=== PATIENT | female | born 1985 | race Two or more races ===

== ENCOUNTER 2017-07-30 04:36 | Emergency (ER) | payer OTHER ==
[~2017-07-30] VITALS: Ht 170.2 cm; Wt 90.6 kg
[2017-07-30 06:14] LABS: HEMATOCRIT 40.1 % (34.6-47.8); HEMOGLOBIN 13.5 g/dL (11.7-16.4)
[2017-07-30 06:23] LABS: BLOOD UREA NITROGEN 11 mg/dL (7-18)
[2017-07-30] MEDS ORDERED: KETOROLAC 30 MG/1 ML IVPush ONE (07:00)
[2017-07-30] MEDS ORDERED: KETOROLAC 30 MG/1 ML ONE (07:01)
[2017-07-30 07:23] VITALS: BP 136/88
== END 2017-07-30 07:25 | disposition home or self-care (01) ==
LOC: ED 06:22
DX: R10.32 Left lower quadrant pain (principal)
CPT/HCPCS: 36415; 76830; 80048; 81003; 82040; 84703; 85025; 96374; 99285; J1885

== ENCOUNTER 2017-09-17 23:33 | Emergency (ER) | payer OTHER ==
[~2017-09-17] VITALS: Ht 170.2 cm; Wt 89.4 kg
[2017-09-18] MEDS ORDERED: SODIUM CHLORIDE 0.9% 1,000ML IVBOLUS ONE
[2017-09-18] MEDS ORDERED: SODIUM CHLORIDE FLUSH 10ML SYR IVF ONE
[2017-09-18] MEDS ORDERED: KETOROLAC 30 MG/1 ML IVPush ONE
[2017-09-18] MEDS ORDERED: KETOROLAC 30 MG/1 ML ONE (00:07)
[2017-09-18 00:21] LABS: HEMATOCRIT 41.7 % (34.6-47.8); HEMOGLOBIN 14.2 g/dL (11.7-16.4); WHITE BLOOD COUNT 12.2 x10^3/uL (3.4-10)
[2017-09-18 00:34] LABS: ASPARTATE AMINO TRANSFERASE 10 U/L (15-37); BLOOD UREA NITROGEN 11 mg/dL (7-18)
[2017-09-18] MEDS ORDERED: morphine SULFATE 10 MG/ML, 1ML ONE (01:56)
[2017-09-18] MEDS ORDERED: ONDANSETRON 2MG/ML, 2ML ONE (01:56)
[2017-09-18] MEDS ORDERED: ONDANSETRON 2MG/ML, 2ML IVPush ONE (02:00)
[2017-09-18] MEDS ORDERED: morphine SULFATE 10 MG/ML, 1ML IVPush ONE (02:00)
[2017-09-18 02:52] VITALS: BP 118/57
== END 2017-09-18 02:54 | disposition home or self-care (01) ==
LOC: ED 23:59
DX: R10.32 Left lower quadrant pain (principal)
CPT/HCPCS: 36415; 76830; 80053; 81003; 84702; 85025; 96361; 96374; 96375; 99285; J1885; J2270; J2405; J7030

== ENCOUNTER 2018-09-28 22:42 | Emergency (ER) | payer OTHER ==
[~2018-09-28] VITALS: Ht 170.2 cm; Wt 90.0 kg
[2018-09-28 23:31] VITALS: BP 128/68
[2018-09-28 23:42] LABS: CULTURE INDICATED? YES; MICROSCOPIC INDICATED
[2018-09-28] MEDS ORDERED: CEFTRIAXONE 250 MG ONE (23:55)
[2018-09-29] MEDS ORDERED: CEFTRIAXONE 250 MG IM ONE
== END 2018-09-29 00:02 | disposition home or self-care (01) ==
LOC: ED 23:29
DX: N30.01 Acute cystitis with hematuria (principal)
CPT/HCPCS: 81001; 87077; 87086; 96372; 99284; J0696; 87186

== ENCOUNTER 2020-02-15 10:44 | Emergency (ER) | payer OTHER ==
[~2020-02-15] VITALS: Ht 170.2 cm; Wt 87.1 kg
--- NOTE | 2020-02-15 11:05 | NUR ---
PT TO ROOM VIA WHEELCHAIR FROM TRIAGE WITH C-COLLAR IN PLACED. PT TRANSFERED TO [facility], PT UNABLE TO TOLLERATE HAVING GURNEY FLAT, HOB AT 30DEGREES. VSS. CALL LIGHT W/I REACH, PT INSTRUCTED TO NOT REPOSITION SELF AND TO STAY ON GURNEY. PT VERBALIZES UNDERSTANDING. AWAITING ER PROVIDER VICENTE.
--- NOTE | 2020-02-15 11:18 | NUR ---
ER PA AT BEDSIDE, PT ASSESSMENT POC DISCUSSED. ORDERS REC'D.
[2020-02-15] MEDS ORDERED: METHOCARBAMOL 500 MG TABLET ONE (11:29)
[2020-02-15] MEDS ORDERED: METHOCARBAMOL 750 MG TABLET PO ONE (11:30)
[2020-02-15] MEDS ORDERED: METHOCARBAMOL 750 MG TABLET ONE (11:31)
[2020-02-15] MEDS ORDERED: KETOROLAC 30 MG/1 ML IM ONE (13:00)
[2020-02-15 13:20] VITALS: BP 137/91
--- NOTE | 2020-02-15 13:48 | NUR ---
Patient/Caregiver given discharge instructions and they have confirmed that they understand the instructions. Patient ambulatory with steady gait.
== END 2020-02-15 13:49 | disposition home or self-care (01) ==
LOC: ED 13:19
DX: S16.1XXA Strain of muscle, fascia and tendon at neck level, initial encounter (principal); S00.83XA Contusion of other part of head, initial encounter; R68.84 Jaw pain; W01.0XXA Fall on same level from slipping, tripping and stumbling without subsequent striking against object, initial encounter; Y93.89 Activity, other specified; Y92.89 Other specified places as the place of occurrence of the external cause; Y99.8 Other external cause status
CPT/HCPCS: 70486; 72072; 72125; 99285

== ENCOUNTER 2020-07-05 21:48 | Emergency (ER) | payer OTHER ==
[~2020-07-05] VITALS: Ht 170.2 cm; Wt 81.2 kg
[2020-07-05 21:49] VITALS: BP 122/87
[2020-07-05] MEDS ORDERED: DIPH,PERTUSS(ACELL),TET VAC/PF 0.5 ML IM-VACC ONE ×3 (22:00→22:26)
--- NOTE | 2020-07-05 22:37 | NUR ---
Pt suffered laceration while buidling a shed this morining @1000. Pt wound is about 3cmlength with 1 cm width. Pts wound is irrigated with sterile saline. Pt then had steri strip applied and dermabound for reiforcement.
== END 2020-07-05 22:44 | disposition home or self-care (01) ==
LOC: ED 22:00
DX: S61.411A Laceration without foreign body of right hand, initial encounter (principal); W26.9XXA Contact with unspecified sharp object(s), initial encounter; Y93.89 Activity, other specified; Y92.009 Unspecified place in unspecified non-institutional (private) residence as the place of occurrence of the external cause; Y99.8 Other external cause status
CPT/HCPCS: 12041; 90471; 90715; 99284

== ENCOUNTER 2020-11-11 00:53 | Emergency (ER) | payer OTHER ==
[~2020-11-11] VITALS: Ht 170.2 cm; Wt 82.0 kg
--- NOTE | 2020-11-11 01:10 | NUR ---
PT CAME INTO ED TODAY FOR LOWER LEFT ABDOMINAL QUADRANT PAIN. PT REPORTS NO CHANGE IN BOWEL PATTERNS, ONGOING FOR 6 DAYS, STATES "I THOUGHT IT WAS AN OVARIAN CYST BUT ITS GOTTEN WORSE AND ISNT GOING AWAY." PT AMBULATED TO AND FROM RESTROOM WITH A SMOOTH AND STEADY GAIT, UA OBTAINED. PT RESTING BACK ON GURNEY, APPEARS COMFORTABLE, PLACED ON SPO2/BP MONITORING. DENIES N/V/D. PROVIDED WARM BLANKETS FOR COMFORT. TEGAN MUNOZ AT BS FOR EVAL AND POC
--- NOTE | 2020-11-11 01:23 | NUR ---
pt reports being seen at her [facility] yesterday, after US they informed her it was not a cyst. pt ua and labs collected, wctm.
[2020-11-11] MEDS ORDERED: ONDANSETRON 2MG/ML, 2ML ONE (01:26)
[2020-11-11] MEDS ORDERED: MORPHINE SULFATE 4 MG/ML, 1ML ONE (01:26)
[2020-11-11] MEDS ORDERED: MORPHINE SULFATE 4 MG/ML, 1ML IVPush PRN (01:30)
[2020-11-11] MEDS ORDERED: SODIUM CHLORIDE FLUSH 10ML SYR IVF ONE (01:30)
[2020-11-11] MEDS ORDERED: ONDANSETRON 2MG/ML, 2ML IVPush ONE (01:30)
[2020-11-11] MEDS ORDERED: SODIUM CHLORIDE 0.9% 1,000ML IVBOLUS ONE (01:30)
--- NOTE | 2020-11-11 01:37 | NUR ---
pt medicated per mar for pain, ivf running, lights dimmed for comfort, bed in lowest, call light on lap, wctm.
[2020-11-11 01:59] LABS: ALANINE AMINOTRANSFERASE 21 U/L (12-78); ALBUMIN 3.2 g/dL (3.4-5.0); ANION GAP 9 mmol/L (5-15); CALCIUM 8.7 mg/dL (8.5-10.1); CHLORIDE 110 mmol/L (98-107); CREATININE 0.67 mg/dL (0.55-1.02)
[2020-11-11 02:03] LABS: ALKALINE PHOSPHATASE 73 U/L (45-117); BASOPHILS % (AUTO) 0 % (0-1); EOSINOPHILS % (AUTO) 2 % (1-7); LYMPHOCYTES % (AUTO) 13 % (22-44); MEAN CORPUSCULAR HEMOGLOBIN 28.3 pg (27.0-34.8); MEAN CORPUSCULAR HGB CONC 33.8 g/dL (32.4-35.8); MEAN PLATELET VOLUME 7.8 fL (7.4-10.4); MONOCYTES % (AUTO) 7 % (2-9); NEUTROPHILS % (AUTO) 78 % (42-75); PLATELET COUNT 295 x10^3/uL (130-400); RED BLOOD COUNT 4.66 x10^6/uL (3.82-5.3); RED CELL DISTRIBUTION WIDTH 13.9 % (9.6-15.2); TOTAL PROTEIN 7.8 g/dL (6.4-8.2)
[2020-11-11 02:04] LABS: MD NO
[2020-11-11 02:23] LABS: MICROSCOPIC INDICATED
--- NOTE | 2020-11-11 03:18 | NUR ---
TASK RN: PT RESTING ON SHASHI BRAUN, REPORTS PAIN IS DECREASED AND TOLERABLE, WAITING FOR CT. WCTM.
[2020-11-11 03:47] VITALS: BP 132/85
[2020-11-11] MEDS ORDERED: metroNIDAZOLE 500 MG TABLET ONE (03:48)
[2020-11-11] MEDS ORDERED: CIPROFLOXACIN 500 MG TABLET ONE (03:48)
[2020-11-11] MEDS ORDERED: metroNIDAZOLE 500 MG TABLET PO ONE (04:00)
[2020-11-11] MEDS ORDERED: CIPROFLOXACIN 500 MG TABLET PO ONE (04:00)
--- NOTE | 2020-11-11 04:15 | NUR ---
Patient given discharge instructions and they have confirmed that they understand the instructions. Patient ambulatory with steady gait. nad, all questions answered appropriately. denies additional needs, no personal belongings left in room after dc. pt verbalized that she had a ride home
[2020-11-11] MEDS ORDERED: OMNIPAQUE 350 MG/ML, 100ML BOTTLE ONE (11:27)
== END 2020-11-11 04:25 | disposition home or self-care (01) ==
LOC: ED 01:27
DX: K57.32 Diverticulitis of large intestine without perforation or abscess without bleeding (principal); R10.32 Left lower quadrant pain; Z90.49 Acquired absence of other specified parts of digestive tract
CPT/HCPCS: 36415; 74177; 76830; 80053; 81001; 83690; 84703; 85025; 96361; 96374; 96375; 99285; J2270; J2405; J7030; Q9967

== ENCOUNTER → 2021-02-11 | Outpatient (CLI) | payer OTHER | END | disposition home or self-care (01) | LOC: CFH 08:05 | PROVIDERS: ATTEND Nurse Practitioner Family | DX: N64.4 Mastodynia (principal) | CPT/HCPCS: 76642; 77062; 77066; G0279 ==

== ENCOUNTER 2021-04-26 06:45 | Emergency (ER) | payer OTHER ==
[~2021-04-26] VITALS: Ht 170.2 cm; Wt 89.4 kg
--- NOTE | 2021-04-26 07:20 | NUR ---
PT STATES WAS AT WORK AND AROUND 0400 STARTED TO HAVE NUMBNESS AND TINGLING IN FACE. PT STATES NO WEAKNESS OR FACIAL ASYMETRY. NO WEAKNESS OF DEFICIT EXPERIENCED IN ANY EXTREMITES.
[2021-04-26] MEDS ORDERED: SODIUM CHLORIDE FLUSH 10ML SYR IVF ONE (07:30)
[2021-04-26 07:41] LABS: BASOPHILS % (AUTO) 1 % (0-1); EOSINOPHILS % (AUTO) 3 % (1-7); LYMPHOCYTES % (AUTO) 36 % (22-44); MEAN CORPUSCULAR HEMOGLOBIN 29.1 pg (27.0-34.8); MEAN CORPUSCULAR HGB CONC 34.5 g/dL (32.4-35.8); MEAN PLATELET VOLUME 7.2 fL (7.4-10.4); MONOCYTES % (AUTO) 6 % (2-9); NEUTROPHILS % (AUTO) 55 % (42-75); PLATELET COUNT 252 x10^3/uL (130-400); RED BLOOD COUNT 4.64 x10^6/uL (3.82-5.3); RED CELL DISTRIBUTION WIDTH 13.8 % (9.6-15.2)
[2021-04-26 07:42] LABS: HCT (SEDRATE) 39.4 % (34.6-47.8)
[2021-04-26 07:45] LABS: MD NO
[2021-04-26 07:52] LABS: ALBUMIN 3.4 g/dL (3.4-5.0); ANION GAP 5 mmol/L (5-15); CALCIUM 8.4 mg/dL (8.5-10.1); CHLORIDE 108 mmol/L (98-107); CREATININE 0.71 mg/dL (0.55-1.02)
--- NOTE | 2021-04-26 08:47 | NUR ---
PT STATES STILL HAS NUMBNESS AND TINGLING ON THE L SIDE OF FACE AND AROUND EAR.
--- NOTE | 2021-04-26 08:48 | NUR ---
PT RESTING IN [facility], [facility] RAILS UP X2.
[2021-04-26 09:59] VITALS: BP 122/87
--- NOTE | 2021-04-26 10:21 | NUR ---
Patient given discharge instructions and they have confirmed that they understand the instructions. Patient ambulatory with steady gait. No questions at time of discharge.
== END 2021-04-26 10:23 | disposition home or self-care (01) ==
LOC: ED 09:09
DX: R20.2 Paresthesia of skin (principal); R94.31 Abnormal electrocardiogram [ECG] [EKG]
CPT/HCPCS: 36415; 70450; 80048; 82040; 85025; 85651; 93005; 99285

== ENCOUNTER 2021-08-15 21:40 | Inpatient (IN) | payer OTHER ==
[~2021-08-15] VITALS: Ht 167.6 cm; Wt 92.6 kg
--- NOTE | 2021-08-15 21:58 | NUR ---
PT ALERT AND ORIENTED X4, CHANGING INTO HOSPITAL GOWN. IN NO ACUTE DISTRESS.
[2021-08-15] MEDS ORDERED: ONDANSETRON 2MG/ML, 2ML ONE (22:18)
[2021-08-15] MEDS ORDERED: MORPHINE SULFATE 4 MG/ML, 1ML ONE ×2 (22:19→23:41)
[2021-08-15] MEDS ORDERED: MORPHINE SULFATE 4 MG/ML, 1ML IVPush ONE (22:30)
[2021-08-15] MEDS ORDERED: SODIUM CHLORIDE 0.9% 1,000ML IVBOLUS ONE (22:30)
[2021-08-15] MEDS ORDERED: ONDANSETRON 2MG/ML, 2ML IVPush ONE (22:30)
[2021-08-15] MEDS ORDERED: SODIUM CHLORIDE FLUSH 10ML SYR IVF ONE (22:30)
--- NOTE | 2021-08-15 22:31 | NUR ---
PT IN IMAGING AT THIS TIME, WILL MEDICATE UPON RETURN
[2021-08-15 22:33] LABS: BASOPHILS % (AUTO) 0 % (0-1); EOSINOPHILS % (AUTO) 1 % (1-7); LYMPHOCYTES % (AUTO) 14 % (22-44); MEAN CORPUSCULAR HEMOGLOBIN 28.6 pg (27.0-34.8); MEAN CORPUSCULAR HGB CONC 34.2 g/dL (32.4-35.8); MEAN PLATELET VOLUME 7.6 fL (7.4-10.4); MONOCYTES % (AUTO) 5 % (2-9); NEUTROPHILS % (AUTO) 80 % (42-75); PLATELET COUNT 301 x10^3/uL (130-400); RED BLOOD COUNT 5.12 x10^6/uL (3.82-5.3); RED CELL DISTRIBUTION WIDTH 13.9 % (9.6-15.2)
[2021-08-15 22:41] LABS: ALANINE AMINOTRANSFERASE 37 U/L (12-78); ALBUMIN 3.5 g/dL (3.4-5.0); ANION GAP 4 mmol/L (5-15); CALCIUM 8.5 mg/dL (8.5-10.1); CHLORIDE 104 mmol/L (98-107); CREATININE 0.81 mg/dL (0.55-1.02)
[2021-08-15 22:46] LABS: ALKALINE PHOSPHATASE 65 U/L (45-117); BILIRUBIN,TOTAL 0.9 mg/dL (0.2-1.0); TOTAL PROTEIN 8.3 g/dL (6.4-8.2)
--- NOTE | 2021-08-15 22:47 | NUR ---
PT MEDICATED, IVF RUNNING AT THIS TIME. PT WILL PROVIDE URINE SAMPLE ONCE PAIN IS UNDER CONTROLLED, PT CITES DIFFICULTY MOVING/AMBULATING AT THIS TIME SECONDARY TO PAIN.
[2021-08-15] MEDS ORDERED: KETOROLAC 30 MG/1 ML ONE (23:41)
--- NOTE | 2021-08-15 23:56 | NUR ---
UPDATED PA LONG THAT PT STILL HAVING PAIN, PT MEDICATED WITH ADDITIONAL PAIN MEDICATIONS. CT SCAN PENDING AT THIS TIME. PT HAS CALL CM AND PERSONAL ITEMS WITHIN REACH.
[2021-08-16] MEDS ORDERED: MORPHINE SULFATE 4 MG/ML, 1ML IVPush ONE
[2021-08-16] MEDS ORDERED: KETOROLAC 30 MG/1 ML IVPush ONE
[2021-08-16] MEDS ORDERED: ONDANSETRON 2MG/ML, 2ML IVPush ONE
--- NOTE | 2021-08-16 00:27 | NUR ---
PT TRANSPORTED TO CT AT THIS TIME.
--- NOTE | 2021-08-16 00:32 | NUR ---
PT BACK FROM CT, HAVING INCREASED PAIN. PT TACHY W/ HR 130'S. UPDATED DR. ADAME AND TAMMY ANSARI. DR. ADAME TO EVALUATE PT AND ORDER ADDITIONAL PAIN MEDICATIONS.
[2021-08-16] MEDS ORDERED: HYDROmorphone 2 MG/ML, 1ML ONE (00:35)
--- NOTE | 2021-08-16 00:41 | NUR ---
MEDICATED PT WITH 1MG IV DILAUDID. CT RESULTS PENDING. UNABLE TO PROVIDE URINE SAMPLE AT THIS TIME.
[2021-08-16] MEDS ORDERED: HYDROmorphone 1 MG/ML, 1ML INJ IV ONE (01:00)
[2021-08-16] MEDS ORDERED: METRONIDAZOLE PMX 500MG/100ML 100 ML IV ONE (01:30)
[2021-08-16] MEDS ORDERED: METRONIDAZOLE PMX 500MG/100ML 0 ML ONE (01:32)
[2021-08-16] MEDS ORDERED: ONDANSETRON 2MG/ML, 2ML ONE (01:33)
[2021-08-16] MEDS ORDERED: CIPROFLOXACIN LACTATE 200 MG in DEXTROSE 5% 100 ML IV SCH (01:45)
[2021-08-16 02:10] LABS: MICROSCOPIC AUTO
[2021-08-16] MEDS ORDERED: OXYcodone IR 5MG TABLET PO PRN (02:30)
[2021-08-16] MEDS ORDERED: MELATONIN 5 MG TABLET PO PRN (02:30)
[2021-08-16] MEDS ORDERED: POLYETHYLENE GLYCOL 17 GM PACKET PO PRN (02:30)
[2021-08-16] MEDS ORDERED: HYDROmorphone 2 MG/ML, 1ML IVPush PRN (02:30)
[2021-08-16] MEDS ORDERED: LABETALOL 5MG/ML, 20ML IVPush PRN (02:30)
--- NOTE | 2021-08-16 02:44 | NUR ---
PHARMACY TO RE-TIME MARYJANE AND LATANYA ABX
--- NOTE | 2021-08-16 02:45 | NUR ---
PT PROVIDED W/ CLEAR LIQUIDS AND ICE CHIPS. TOLERATING WELL.
[2021-08-16] MEDS ORDERED: SODIUM CHLORIDE 0.9% 1,000ML IVBOLUS ONE (03:00)
[2021-08-16] MEDS ORDERED: CIPROFLOXACIN LACTATE 200 MG in DEXTROSE 5% 100 ML IV ONE (03:00)
--- NOTE | 2021-08-16 03:17 | NUR ---
PT TRANSITIONED TO INPATIENT BED. TOLERATED WELL. RESTING COMFORTABLY AT THIS TIME. IV ABX RUNNING. CALL CM AND PERSONAL ITEMS WITHIN REACH. DENIES FURTHER NEEDS AT THIS TIME.
[2021-08-16] MEDS ORDERED: ACETAMINOPHEN 325 MG TABLET ONE (04:40)
[2021-08-16] MEDS: ACETAMINOPHEN 325 MG TABLET PO PRN ×3 (04:44→17:52)
[2021-08-16] MEDS ORDERED: OMNIPAQUE 350 MG/ML, 100ML BOTTLE ONE (06:14)
[2021-08-16] MEDS ORDERED: OXYcodone IR 5MG TABLET ONE (06:23)
--- NOTE | 2021-08-16 06:47 | NUR ---
PT R IV SITE INFILTRATED. NEW IV ESTABLISHED IN L HAND. 20G.
--- NOTE | 2021-08-16 07:36 | NUR ---
SBAR RPT REC'D AND ASSUMED PT CARE. PT OOB AND ABLE TO STAND AT SINK TO BRUSH TEETH W/O DIFFICULTY. RATES PAIN 5/10, DENIES NEED FOR ANY ADDITIONAL PAIN MED AT THIS TIME. SP02 MONITORING IN PLACE, 95% RA. CALL LIGHT W/I REACH. ASSESSMENT NOTED.
[2021-08-16] MEDS: LACTATED RINGERS 1,000 ML IV SCH ×2 (07:40→20:32)
[2021-08-16] MEDS ORDERED: METRONIDAZOLE PMX 500MG/100ML 100 ML ONE (09:38)
[2021-08-16] MEDS ORDERED: FAMOTIDINE 20 MG/2 ML ONE (09:38)
[2021-08-16] MEDS: FAMOTIDINE 20 MG/2 ML IVPush SCH ×2 (10:45→20:31)
[2021-08-16] MEDS: METRONIDAZOLE PMX 500MG/100ML 100 ML IV SCH ×2 (10:45→18:41)
[2021-08-16] MEDS: ONDANSETRON 2MG/ML, 2ML IVPush PRN (10:46)
[2021-08-16 12:42] VITALS: BP 123/82
[2021-08-16] MEDS ORDERED: CIPROFLOXACIN/PMX 400MG/200ML 200 ML IV SCH (15:00)
[2021-08-16] MEDS: CEFTRIAXONE 1,000 MG in DEXTROSE 5% 50 ML IVPB SCH (17:09)
[2021-08-16 19:50] VITALS: BP 115/79
[2021-08-17 00:15] VITALS: BP 116/77
[2021-08-17] MEDS: ONDANSETRON 2MG/ML, 2ML IVPush PRN (00:19)
[2021-08-17] MEDS: ACETAMINOPHEN 325 MG TABLET PO PRN (00:20)
[2021-08-17] MEDS: METRONIDAZOLE PMX 500MG/100ML 100 ML IV SCH (02:46)
[2021-08-17] MEDS: CEFTRIAXONE 1,000 MG in DEXTROSE 5% 50 ML IVPB SCH (04:16)
[2021-08-17 06:27] LABS: BASOPHILS % (AUTO) 1 % (0-1); EOSINOPHILS % (AUTO) 2 % (1-7); LYMPHOCYTES % (AUTO) 31 % (22-44); MEAN CORPUSCULAR HEMOGLOBIN 28.9 pg (27.0-34.8); MEAN CORPUSCULAR HGB CONC 34.3 g/dL (32.4-35.8); MEAN PLATELET VOLUME 7.5 fL (7.4-10.4); MONOCYTES % (AUTO) 6 % (2-9); NEUTROPHILS % (AUTO) 60 % (42-75); PLATELET COUNT 233 x10^3/uL (130-400); RED BLOOD COUNT 4.31 x10^6/uL (3.82-5.3); RED CELL DISTRIBUTION WIDTH 13.8 % (9.6-15.2)
[2021-08-17 06:37] LABS: CHLORIDE 109 mmol/L (98-107)
[2021-08-17 06:42] LABS: ALANINE AMINOTRANSFERASE 41 U/L (12-78); ALBUMIN 2.7 g/dL (3.4-5.0); ALKALINE PHOSPHATASE 55 U/L (45-117); ANION GAP 8 mmol/L (5-15); BILIRUBIN,TOTAL 0.4 mg/dL (0.2-1.0); CALCIUM 7.8 mg/dL (8.5-10.1); CREATININE 0.58 mg/dL (0.55-1.02); TOTAL PROTEIN 6.5 g/dL (6.4-8.2)
[2021-08-17 07:22] VITALS: BP 118/79
[2021-08-17] MEDS: FAMOTIDINE 20 MG/2 ML IVPush SCH (09:04)
[2021-08-17] MEDS ORDERED: CEFD300C37 PO (09:59)
[2021-08-17] MEDS ORDERED: METR500T PO (09:59)
[2021-08-17] MEDS ORDERED: LACT1TAB13 PO (09:59)
== END 2021-08-17 12:31 | disposition home or self-care (01) | DRG 872 ==
LOC: ED 22:02 → EDIP 08-16 01:20 → 3N 08-16 09:34
PROVIDERS: ADMIT Internal Medicine; ATTEND Internal Medicine
DX: A41.9 Sepsis, unspecified organism (principal); E87.1 Hypo-osmolality and hyponatremia; K57.32 Diverticulitis of large intestine without perforation or abscess without bleeding; Z90.49 Acquired absence of other specified parts of digestive tract; Z82.49 Family history of ischemic heart disease and other diseases of the circulatory system; Z83.3 Family history of diabetes mellitus
CPT/HCPCS: 36415; 74177; 76830; 80053; 81001; 83605; 84145; 84703; 85025; 87040; 96361; 96374; 96375; 96376; G0378; J0696; J1170; J1885; J2405; Q9967; J0744; J2270; J7030; J7120